=== PATIENT | female | born 1960 ===

== ENCOUNTER 2016-10-28 05:45 | Inpatient (IN) ==
[2016-10-27 12:59] LABS: Basophils % 0.6 % (0.0-0.8); Eosinophils # 0.3 10*3/uL (0.0-0.87); Eosinophils % 4.6 % (0.00-10.9); Hematocrit 39.9 VOL% (35.7-47.0); Immature Granulocytes % 0.1 %; Immature Granulocytes Absolute 0.01 #; Lymphocytes # 2.3 10*3/uL (1.4-4.0); Mean Corpuscular HGB Conc 32.6 GM/DL (32-36); Mean Corpuscular Hemoglobin 31 PG (27-34); Mean Corpuscular Volume 93.9 FL (87-102); Mean Platelet Volume 10.7 FL (9.6-12.0); Monocytes # 0.6 10*3/uL (0.11-0.8); Monocytes % 9.2 % (1.7-12.7); Neutrophils # 3.7 10*3/uL (1.4-7.4); Neutrophils % 52.5 % (38.7-73.9); Platelet Count 200 T/CUMM (130-400); Red Blood Count 4.25 MC/CUMM (3.8-5.5)
--- NOTE | 2016-10-27 13:04 | EKG Report ---
Stationary ECG Study [facility] Test Date: 10/27/2016 1:02:18 PM Pat Name: PHYLICIA CHAMBERS Department: Room: Gender: F [employer] Teacher: Mel ford : 1960 Requested by: Vineet Ford Order Number: [id number] Reading MD: CAROLE GIBSON Intervals [place] Rate: 64 P: 71 SC: 131 QRS: 72 QRSD: 93 T: 41 QT: 426 QTc: 435 Interpretive Statements SINUS RHYTHM At 64 bpm WNL Electronically Signed On 10-27-16 13:26:10 CDT by CAROLE GIBSON [email or web address]
[2016-10-27 13:05] LABS: PT Patient Result 10.9 SECS; Partial Thromboplastin Time 28.5 SECS (0-40)
[2016-10-27 13:32] LABS: Albumin 3.7 G/DL (3.4-5.0); Bilirubin,Total 0.9 MG/DL (0.2-1.0); Calcium 8.8 MG/DL (8.5-10.1); Osmolality,Calculated 288.8 MOS/KG (273-304); Potassium 4.2 MMOL/L (3.5-5.1); Total Protein 7.2 G/DL (6.4-8.3)
--- NOTE | 2016-10-27 14:25 | XRay Report ---
XR chest 2V Indication: Preop respiratory evaluation. Chest 2 views: Comparison 01/21/2015. Heart size and mediastinal contour remain normal. Area of parenchymal scarring lateral right upper lobe is stable. No new infiltrates are seen. Pleural spaces remain clear. Impression: No acute cardiopulmonary disease. PROCEDURE INTERPRETED AT [facility] DEPARTMENT OF RADIOLOGY Final Report Signed by: Sushant Lopez M.D.
[2016-10-28] MEDS ORDERED: ceFAZolin 2,000 MG in PREMIX 1 EACH IV ONE (06:00)
[2016-10-28] MEDS ORDERED: BUPIVACAINE MPF 0.25% /EPI 30 ML VIAL ONE (06:28)
[2016-10-28] MEDS ORDERED: ISOSULFAN BLUE 5 ML VIAL SUBCUT ONE (06:28)
[2016-10-28] MEDS ORDERED: LACTATED RINGERS 1,000 ML IV SCH (06:30)
[2016-10-28] MEDS ORDERED: ALBUTEROL 2.5 MG/3 ML NEB RESP TX ONE (06:31)
[2016-10-28] MEDS ORDERED: FAMOTIDINE 20 MG TABLET PO ONE (06:31)
[2016-10-28] MEDS ORDERED: DIAZEPAM 5 MG TABLET PO ONE (06:31)
[2016-10-28] MEDS ORDERED: DIAZEPAM 5 MG TABLET ONE (06:36)
[2016-10-28] MEDS ORDERED: FAMOTIDINE 20 MG TABLET ONE (06:36)
--- NOTE | 2016-10-28 07:08 | History and Physical Update ---
History and Physical Update - History and Physical H&P was reviewed, the patient examined and there: are no changes in the patients condition since last H&P was completed.
[2016-10-28] MEDS ORDERED: GLYCOPYRROLATE 0.4 MG/2 ML VIAL ONE (08:25)
[2016-10-28] MEDS ORDERED: DEXAMETHASONE 10 MG/1 ML VIAL ONE (08:25)
[2016-10-28] MEDS ORDERED: LIDOCAINE 2% 5 ML VIAL ONE (08:25)
[2016-10-28] MEDS ORDERED: PHENYLEPHRINE 1 MG/10 ML SYRINGE IV ONE (08:25)
[2016-10-28] MEDS ORDERED: NEOSTIGMINE 10 MG/10 ML VIAL ONE (08:25)
[2016-10-28] MEDS ORDERED: ROCURONIUM 100 MG/10 ML VIAL IV ONE (08:25)
[2016-10-28] MEDS ORDERED: PROPOFOL 200 MG/20 ML VIAL IV ONE (08:25)
[2016-10-28] MEDS ORDERED: KETOROLAC 30 MG/1 ML VIAL ONE (08:25)
[2016-10-28] MEDS ORDERED: ONDANSETRON 4 MG/2 ML VIAL ONE ×2 (08:25→12:15)
[2016-10-28] MEDS ORDERED: HYDROmorphone 2 MG/1 ML VIAL IV PRN (11:26)
[2016-10-28] MEDS ORDERED: ONDANSETRON 4 MG/2 ML VIAL IV PRN ×2 (11:26→12:18)
[2016-10-28] MEDS ORDERED: ACETAMINOPHEN 325 MG TABLET PO PRN (11:26)
[2016-10-28] MEDS ORDERED: TISSUE ADHESIVE 1 EACH APPLICATOR TOP ONE (11:26)
[2016-10-28] MEDS ORDERED: ALBUTEROL 2.5 MG/3 ML NEB RESP TX PRN (11:36)
--- NOTE | 2016-10-28 11:52 | Operative Note ---
Date of procedure: 10/28/16 Pre-op diagnosis: Cancer right breast Post-op diagnosis: other (Cancer right breast with positive axillary lymph node) Procedure: Operative note: Preoperative diagnosis: Cancer right breast upper outer quadrant Postop diagnosis: 1. Cancer right upper quadrant of the right breast 2. Positive axillary lymph node Procedure: 1. Wire localization with lumpectomy of the 10 o'clock position upper outer quadrant right breast with margins 2. Right sentinel node axillary dissection 3. Right completion axillary dissection. Surgeon Dr. Echols Corn Husker Machine Operator Zeenat Dugan, SURVEILLANCE MANAGER ACNP Anesthesia general with local Brief history: 56-year-old female comes in with a fairly small cancer right breast upper outer quadrant only about a centimeter in size. Was positive for cancer and we elected to bring her in for a lumpectomy at this time with sentinel node. She came in had a wire localization and came to surgery at this time for surgery. She had a sentinel node mapping the day before. Procedure: With patient in the supine position prepped and draped in a sterile fashion timeout and antibiotics completed we brought up the probe and identified the area of the hot lymph node. Because this wire look is close to the axilla I felt is important to go ahead and tried to the axillary part first. At that point we made an incision in the axilla over the site of the hottest lymph node and begin dissected down to the skin subcutaneous tissue. The large lady with a good bit of fatty tissue in the axilla at this time. It was a deep dissection but we carefully dissected down in that area to we can identify the area of the hot lymph node. I was able identify some blue dye in it and then we were able to go ahead and dissected this lymph node completely out in the lower part of the axilla. It was fairly large and firm at this time and we sent it for frozen section. The lymph node would come back as positive for cancer. At this point will moved over to do the lumpectomy site. We were doing this while we were waiting for the final report on the lymph node. At that point where we could see it with ultrasound we basically made an incision in the upper outer quadrant of the right breast and dissected down through the subtenons tissue down to the breast tissue I tried to identify the direction of the wire. The wire was identified and then we began the lips and area around this wire superiorly and inferiorly going all with out to the base of the chest wall to remove the entire lump of tissue. Once it was completely removed with the wire in place we could see the end of the hematoma site at this point. We then marked this with margin marker and clips and sent it to the pathologist and the radiologist. We will get a report back at this point that it may be a little close to the portion near the hematoma. Also the pathologist thought the anterior superior border might be a little close also. We will go back in wound and excised this medial margin to remove the remnant of that hematoma. We then went back and remove additional tissue in the anterior superior portion of this specimen to ensure that margin was clear. Once that was completed we just use light cauterization of bleeding just put a wet sponge in there. We knew at this time that the sentinel node was positive so we extended the incision in the axilla and begin to do an axillary dissection identifying the across major muscle and dissecting up towards where the vein was. A lot of fatty tissue in this area and we dissected that axillary content down from the surface part preserving the nerves and dissecting and preserving the vessels to the muscles. We dissected this fatty tissue out completely the axilla marking the upper part where I could feel firm node in that region. Once that axillary content was completely out we washed irrigated this area with sterile water using light cauterization clips. We have been using clips as we went to control any vessels or bleeding in the axilla at this time.. Once that was completed and dry at this point then we made a separate stab wound placed a #7 Rakesh-Hightower drain into the axilla and then put Tisseel her fibrin glue into the pocket and closed the subtenons tissue running 3-0 Vicryl close the skin running 4-0 Monocryl. We next went back to the lumpectomy site were marked some hemoclips along the edges of the pocket and then closed the deep subcutaneous tissue with a 3-0 Vicryl close the subcutaneous tissue with with 3-0 Vicryl. We then closed the skin with a running 4-0 Monocryl and Dermabond was applied here. Patient was then taken recovery room. Estimated blood loss 20 cc Sponge count correct 2 Drains one #7 Rakesh-Hightower Complications none Condition stable satisfactory Anesthesia: GETA, local (0.25% Marcaine with epinephrine mixed [id number] 1% Xylocaine plain) Surgeon / Physician: Vineet Echols Corn Husker Machine Operator: Zeenat Dugan Estimated blood loss: other (20 cc) Specimens: other (Lumpectomy site right breast, right sentinel lymph node, right completion axillary dissection) Condition: stable Disposition: floor Results - Labs CBC & BMP: 10/27/16 12:48 10/27/16 12:48 Discharge Plan - Discharge Medications No Action Albuterol Neb [Proventil Neb] 2.5 mg RESP TX BEDTIME PRN PRN Reason: Shortness Of Breath/Wheezing Omeprazole 40 mg PO BID Ibuprofen 400 mg PO DIRECTED - Follow Up or Referral - Forms/Instructions
[2016-10-28] MEDS: KETOROLAC 15 MG/1 ML VIAL IV SCH ×3 (12:00→23:42)
--- NOTE | 2016-10-28 12:02 | Anesthesia Post-Op ---
Anesthesia Post OP - Post Ansesthetic Evaluation Patient seen in post op: Yes Resp: within normal limits CV: within normal limits Mental: within normal limits Temp: within normal limits [id number]: within normal limits Nausea and Vomiting: within normal limits Pain: within normal limits
[2016-10-28] MEDS ORDERED: fentaNYL 100 MCG/2 ML VIAL ONE (12:06)
[2016-10-28] MEDS ORDERED: ePHEDrine 50 MG/ML AMP ONE (12:06)
[2016-10-28] MEDS ORDERED: MIDAZOLAM 2 MG/2 ML VIAL ONE (12:06)
[2016-10-28] MEDS ORDERED: SEVOFLURANE 1 UNIT/15 MINUTE INH ONE (12:06)
[2016-10-28] MEDS ORDERED: LACTATED RINGERS 2,000 ML IV ONE (12:07)
[2016-10-28] MEDS ORDERED: ACETAMINOPHEN 1,000 MG/100 ML VIAL IV ONE (12:07)
[2016-10-28] MEDS ORDERED: HYDROmorphone 2 MG/1 ML VIAL ONE (12:15)
[2016-10-28] MEDS: HYDROmorphone 2 MG/1 ML VIAL IV PRN ×3 (12:17→12:36)
[2016-10-28] MEDS: DEXTROSE 5% NACL 0.45% 1,000 ML IV SCH (16:30)
--- NOTE | 2016-10-28 16:52 | Ultrasound Report ---
RIGHT BREAST ULTRASOUND GUIDED WIRE LOCALIZATION DATE: October 28, 2016 HISTORY: 56 year-old female returning for ultrasound-guided wire localization for the biopsy-proven grade 1 infiltrating ductal carcinoma in the right upper outer quadrant at the 10:00 position measuring 1.1 x 1.0 cm. PROCEDURE: The ultrasound guided wire localization procedure was discussed with the patient and written informed consent was obtained. The targeted 10:00 mass was redemonstrated with ultrasound. The skin of the right breast and the ultrasound probe were prepared in the usual sterile fashion. 1% lidocaine was used for local anesthesia. A 7 cm Kopans needle was placed through the targeted mass and accurate positioning confirmed with real-time ultrasound. A 20 cm long hookwire was placed through the needle and the needle was removed leaving 6 cm of wire inside the breast. The patient did well and no immediate complications occurred. The hookwire was secured to the patient's chest with an overlying gauze bandage. The post localization mammographic XCCL and MLO views demonstrate that the distal thickened portion of the hookwire passes through the mass and is adjacent to the clip from prior biopsy. Posterior to the hookwire is a 3.0 x 1.6 cm hematoma. The localization was discussed with Dr. Leonardo Echols and the labeled mammographic images were sent with the patient to same day surgery. The specimen radiograph demonstrates that the targeted mass, the adjacent clip and the distal portion of the hookwire are included within the soft tissue specimen. The interpretation was discussed with Dr. Echols. IMPRESSION: Status post successful ultrasound-guided wire localization of the known grade 1 infiltrating ductal carcinoma in the right upper outer quadrant at the 10:00 position. PROCEDURE INTERPRETED AT [facility] DEPARTMENT OF RADIOLOGY Final Report Signed by: Dr. Amberly Morris
[2016-10-28] MEDS: ceFAZolin 2,000 MG in SODIUM CHLORIDE 0.9% 100 ML IV SCH (17:57)
[2016-10-28 18:28] LABS: Hematocrit 38.9 VOL% (35.7-47.0)
[2016-10-29] MEDS: DEXTROSE 5% NACL 0.45% 1,000 ML IV SCH (01:08)
[2016-10-29] MEDS: ceFAZolin 2,000 MG in SODIUM CHLORIDE 0.9% 100 ML IV SCH ×3 (01:09→17:38)
[2016-10-29 04:39] LABS: Basophils % 0.1 % (0.0-0.8); Eosinophils % 0.1 % (0.00-10.9); Hematocrit 35.2 VOL% (35.7-47.0); Hemoglobin 11.5 GM/DL (12.0-16.0); Immature Granulocytes % 0.4 %; Immature Granulocytes Absolute 0.03 #; Lymphocytes # 1.3 10*3/uL (1.4-4.0); Lymphocytes % 14.7 % (21.3-54.2); Mean Corpuscular HGB Conc 32.7 GM/DL (32-36); Mean Corpuscular Hemoglobin 31 PG (27-34); Mean Corpuscular Volume 94.6 FL (87-102); Mean Platelet Volume 11.2 FL (9.6-12.0); Monocytes # 0.7 10*3/uL (0.11-0.8); Monocytes % 8.6 % (1.7-12.7); Neutrophils # 6.5 10*3/uL (1.4-7.4); Neutrophils % 76.1 % (38.7-73.9); Platelet Count 178 T/CUMM (130-400); Red Blood Count 3.72 MC/CUMM (3.8-5.5); Red Cell Distribution Width 13.1 % (9.3-17.3); White Blood Count 8.5 T/CUMM (4-12)
[2016-10-29 05:07] LABS: Calcium 7.7 MG/DL (8.5-10.1); Potassium 4.5 MMOL/L (3.5-5.1)
[2016-10-29] MEDS: KETOROLAC 15 MG/1 ML VIAL IV SCH ×3 (05:42→17:35)
--- NOTE | 2016-10-29 07:01 | Oncology Consult Note ---
History of Present Illness Chief complaint: Breast cancer History of present illness: Ms. Holguin is a 56 year old female who has just undergone lumpectomy and sentinel node biopsy of an upper outer quadrant right breast infiltrating ductal adenocarcinoma that was ER 4+, NC 4+ and HER-2/letty negative when it was initially biopsied by Dr. Morris. There was a small area on the needle biopsy , 2 mm, of invasive disease. She has now undergone lumpectomy and sentinel node biopsy. These were performed yesterday and the final results are pending. However, I have discussed the patient's case with Dr. Echols and the patient has a positive sentinel node which changes the stage of her cancer. I had initially planned to treat her with hormone therapy alone but if she has a positive axillary node, or possibly more than one positive axillary node, we will be discussing chemotherapy as well as normal therapy and radiation. I would probably plan to use dose dense Adriamycin and Cytoxan followed by Taxol as well as using hormone therapy. She is postmenopausal. Past medical history: She has no known allergies. Her past medical history is positive for GERD, chronic bronchitis and hepatic steatosis. Prior operations include a cholecystectomy in 2005 and cataract surgery in 2014. Family history is positive for breast cancer in an aunt and her sister. Her sister also has a history of colon cancer. Her mother has a history of renal cancer. Social history: She is a former smoker and she is a former user of alcohol but does not use it anymore. ROS Gen.: Eyes: No history of chronic disease, infections or visual loss. ENT: No history of chronic infections, epistaxis, chronic sore throat Lungs: Positive for COPD no history of asthma,hemoptysis, chronic pleurisy or long-term or chronic infections Cardiovascular: No history of angina, coronary artery disease, congestive heart failure, cardiovascular surgery or DVT/VTE GI: Positive for hepatic steatosis. She also tells me that her appetite is decreased. No history of upper or lower GI bleeding, melena, dysphagia, odynophagia, liver disease, gallbladder disease or pancreatic disease. : No history of kidney stones, chronic kidney infections or hematuria. Musculoskeletal: No history of chronic bone or joint pain or focal muscle atrophy or bone or joint deformity. Neurologic: No history of seizures, convulsions or paralysis. Psychiatric: No history of chronic psychiatric illness or psychiatric medications. Lymphatic: No history of significant or long-term lymphadenopathy Hematologic: No history of anemia, bleeding disorders or blood dyscrasias or long-term elevation or depression white cell count or petechiae. Skin: No history of chronic skin infections or rashes or significant skin lesions. Physical examination: General: The patient is well-developed, well-nourished, obese but in no acute distress. Eyes: Lids and conjunctive are normal. She has had bilateral cataract surgery. ENT: Her oral mucosa and pharynx are normal. Her hearing is normal. Neck: There are no neck masses. Her thyroid is normal. Lungs: Breath sounds are normal and her chest moves symmetrically with respiration. Cardiovascular: Her heart rhythm is regular without murmur, gallop or rub and there is no jugular venous distention, clubbing or cyanosis. Abdomen: No abdominal masses or organomegaly, distention, tenderness or ascites. Musculoskeletal: There is no focal muscle atrophy or bone or joint deformity. Neurologic: Cranial nerves II through XII are intact. No focal neurologic deficits. Psychiatric: She is oriented to time, place, person and situation. I will await the final results of the lumpectomy and node dissection but a properly discussed the possibility of adjuvant chemotherapy with the patient. She already has an appointment to see me in follow-up. She is probably going to need a Mediport catheter placement in order to facilitate adjuvant chemotherapy. Thank you for consulting me. Home Medications Medication Instructions Recorded Confirmed Type Albuterol Neb [Proventil Neb] 2.5 mg RESP TX BEDTIME PRN 01/23/15 10/28/16 History Ibuprofen 400 mg PO DIRECTED 10/27/16 10/28/16 History Omeprazole 40 mg PO BID 10/27/16 10/28/16 History Allergies Allergy/AdvReac Type Severity Reaction Status Date / Time No Known Allergies Allergy Verified 10/28/16 06:14 Medical,Surgical,& Family Hx - Medical History Neurology: No history of: Seizures HEENT: History of: Eye Problem (glasses/cataracts), Dental Problems (partial upper), HEENT Problems (sinus drainage) Respiratory: History of: Asthma, Obstructive Sleep Apnea (c pap instructed pt to bring) Gastrointestinal: History of: GERD (barretts esophagus fatty liver), GI Problems (increased heartburn, dysphagia) Hematology: No history of: Blood Transfusion Reaction Reproductive: History of: Breast Cancer (right breast) Other: No history of: Anesthesia Reactions - Surgical History HEENT Surgeries: Surgical HX of: Eye Surgery (for lt cataract 01/23/15) Abdominal Surgeries: Surgical HX of: Abdominal Surgery, Cholecystectomy Reproductive Surgeries: Surgical HX of;: Breast Surgery (right breast), Gynecologic Surgery, Tubal Ligation Orthopedic Surgeries: Surgical HX of;: Orthopedic Surgery (knee scope x 2) - Family History Family History: Reports;: Family Cancer (mother), Family Diabetes (daughter, mother) Denies;: Family Anesthesia Reaction - Social History Smoking Status: Former smoker Frequency of Alcohol Use: None Type of Drug Use: None Exam - Constitutional Vitals: Period Temp Pulse Resp BP Sys/Morley Pulse Ox Last 24 Hr 97.3 F-98.2 F 72-94 16-22 96-178/43-86 93-99 Results - Labs CBC & BMP: 10/29/16 03:55 10/29/16 03:55
--- NOTE | 2016-10-29 07:59 | General Surgery Progress Note ---
Assessment and Plan - Time spent with patient Time spent with patient: Less than 30 minutes (1) Carcinoma of right breast metastatic to axillary lymph node Status: Acute Assessment and plan: 10/29/16 Stable post op lumpectomy of the right breast with right sentinel node biopsy and formal axillary dissection. We'll try to get her mobile today and begin teaching her how to manage her wound/drain. Awaiting Dr Leach's visit today. Likely discharge home tomorrow. Current Visit: Yes Subjective Patient reports: Present: other (Mild to moderate incisional pain post op; denies n/v. Voiding ok.) Exam - Constitutional Vitals: Period Temp Pulse Resp BP Sys/Morley Pulse Ox Last 24 Hr 97.0 F-98.2 F 72-94 16-22 96-178/43-86 93-99 General appearance: no acute distress, over weight - Respiratory Respiratory exam: Present: clear to auscultation bilaterally - Cardiovascular Cardiovascular exam: Present: RRR - Breasts Breasts: other (Right breast with closed incisions, no unusual induration or fluctuance. Minimal surgical ecchymosis is present. MERLE in place; scant serous drainage. ) - GI/Abdominal GI/Abdominal exam: Present: hypoactive bowel sounds, soft - Extremities Exam Extremities exam: Present: other (RUE without edema or redness. Good right shoulder range of motion although she is cautious and the shoulder is a little stiff with passive range of motion. I believe this is secondary to surgical positioning. ) - Neurological Exam Neurological exam: Present: alert, oriented X3 Results - Labs CBC & BMP: 10/29/16 03:55 10/29/16 03:55 Lab Results: I have reviewed the past 24 hour labs (Post op H&H is stable.)
[2016-10-29] MEDS: ENOXAPARIN 40 MG/0.4 ML SYRINGE SUBCUT SCH (09:11)
[2016-10-29] MEDS: PANTOPRAZOLE 40 MG TABLET PO SCH (09:12)
[2016-10-29] MEDS ORDERED: MAGNESIUM CITRATE 300 ML BOTTLE PO ONE (14:17)
[2016-10-30] MEDS: KETOROLAC 15 MG/1 ML VIAL IV SCH ×2 (00:26→05:45)
--- NOTE | 2016-10-30 06:52 | Oncology Progress Note ---
Oncology Subjective PN Interval history: Final pathology report is pending. Of course if there is tumor in her lymph node, we will need to recheck HER-2/letty studies only. I have discussed this with Dr. Kirit Weiss and I made him aware that I would like this done. Exam - Constitutional Vitals: Period Temp Pulse Resp BP Sys/Morley Pulse Ox Last 24 Hr 98.0 F-99.8 F 68-78 16-22 89-114/50-85 91-98 Results - Labs CBC & BMP: 10/29/16 03:55 10/29/16 03:55 Specialty Discharge - Follow Up or Referrals Follow up with: Vineet Echols MD [Physician] -
[2016-10-30 07:42] VITALS: BP 96/52
[2016-10-30] MEDS: ENOXAPARIN 40 MG/0.4 ML SYRINGE SUBCUT SCH (07:57)
[2016-10-30] MEDS: PANTOPRAZOLE 40 MG TABLET PO SCH (08:07)
[2016-10-30] MEDS: DEXTROSE 5% NACL 0.45% 1,000 ML IV SCH (08:15)
--- NOTE | 2016-10-30 08:20 | Discharge Summary ---
Hospital Course - Hospital Course Hospital Course: Brief summary-This 56 year old female patient with positive family history of breast cancer was found to have infiltrating ductal carcinoma on core needle biopsy after an abnormal routine screening mammogram. Her initial report was of ER/OH positive, HER2 negative tumor that was amenable to lumpectomy. She preferred breast conservation, and this was offered to her, given the tumor size and location in the UOQ. She was prepped for sentinel node biopsy and taken to surgery on 10/28/16, where a lumpectomy with sentinel node biopsy was performed. Unfortunately the sentinel node was positive for metastatic disease, so the procedure was advanced to formal axillary dissection. Postoperatively, she has done fairly well except for some moderate pain and some abdominal discomfort, which we have determined to be constipation. She has now received a laxative, from which she has had good results and is comfortable with resolution of her abdominal discomfort. Today, she is tolerating a regular diet, has been taught to manage her wound care and MERLE drain, which has moderate output. Oncology has been consulted and Dr Leach is awaiting repeat ER/OH/[id number] Studies on the lymph nodes. With her doing well and her pain managed on po Carey, we will plan to discharge home for follow up one week from Wednesday unless she has problems or questions. - Time spent with patient Time with patient DS: Greater than 30 minutes Diagnosis - Discharge Diagnosis (1) Carcinoma of right breast metastatic to axillary lymph node Status: Acute Specialty Discharge - Follow Up or Referrals Follow up with: Vineet Echols MD [Physician] - (One week from Wednesday for drain removal.) Discharge Plan - Discharge Data Disposition: Home Health Service Condition at Discharge: Stable Discharge Diet: advance to your usual diet, other (Increase fiber and drink plenty of water. Get MIRALAX (Over the Counter) and mix one capful in one glass of juice or water and drink daily.) Activity: increase activity as tolerated, other (Post mastectomy exercises as we discussed) Hygiene: may shower Weight Bearing at Discharge: full weight bearing Driving: not for (one week) Contact your physician if you experience:: fever over 101, Redness or swelling, Nausea/Vomiting, Shortness of breath, Bleeding, pain uncontrolled by pain medications Wound / Dressing Care Instructions: Shower/wash the incisions and drain site daily using 10mL of Hibiclens; rinse and pat or air dry. Apply a light gauze dressing or Border gauze over the drain site. Place dry 4x4s or other gauze dressings over the incisions and allow your surgical bra or a sports bra to hold these in place. - Discharge Medications New HYDROcodone/ACETAMIN 7.5-325 [Carey 7.5-325] 1 tablet PO Q6H PRN #20 tablet PRN Reason: Pain Moderate To Severe (4-10) Continue Albuterol Neb [Proventil Neb] 2.5 mg RESP TX BEDTIME PRN PRN Reason: Shortness Of Breath/Wheezing Omeprazole 40 mg PO BID Ibuprofen 400 mg PO DIRECTED - Follow Up or Referral Follow Up: Vineet Echols MD [Physician] - - Forms/Instructions Instructions: Excisional Breast Biopsy (DC), Cristobal Ocampo-Loco Drain Discharge Instructions Exam - Constitutional Vitals: Period Temp Pulse Resp BP Sys/Morley Pulse Ox Last 24 Hr 98.0 F-99.8 F 68-78 16-22 89-114/50-85 91-98 General appearance: no acute distress, over weight - Head Head exam: Present: normal inspection - Respiratory Respiratory exam: Present: clear to auscultation bilaterally - Cardiovascular Cardiovascular exam: Present: regular rate and rhythm - GI/Abdominal GI/Abdominal exam: Present: hypoactive bowel sounds, soft. Absent: distended, tenderness - Extremities Exam Extremities exam: Present: normal inspection - Neurological Exam Neurological exam: Present: alert, oriented X3, reflexes normal - Psychiatric Psychiatric exam: Present: normal affect, normal mood - Skin Skin exam: Present: other (Right breast incisions are clean and dry; there is no unusual ecchymosis or swelling. MERLE site is clean; moderate serous/sanguinous drainage in bulb, about 20-30cc's. ) DS: Provider Date of admission: 10/28/16 05:45 Primary care physician: Maykel Rogers MD Attending physician on admission: Vineet Echols MD Consults: 10/28/16 11:26 Consult to Physician [CONS] Routine Comment: Consulting Provider: Sushant Leach Consulting Provider Notified: Yes When should Consulting Provider be notified: Now Person Notified: francesco dennis Date Notified: 10/28/16 Time Notified: 13:37 Consult Notification Comment: Patient with right breast cancer status post lumpectomy and axillary dissection for positive lymph node 10/28/16 11:33 Consult to Case Mgmt/Social Srvs [CONS] Routine Reason for Case Mgmt/Social Srvs: Discharge Planning Home Health Consult Comment: Wound and Drain management Discharging clinician: Zeenat Dugan CNP, R
== END 2016-10-30 10:30 | disposition home health service (06) | DRG 580 ==
LOC: N.OR 05:45 → N.SDSINP 05:45 → N.3E 08:42 → EDSTATUS 09:00 → N.3E 11:26
PROVIDERS: ADMIT Specialist; ATTEND Specialist

== ENCOUNTER 2022-01-28 05:36 | Inpatient (IN) ==
[2022-01-28] MEDS ORDERED: VANCOMYCIN INJ 1,000 MG in SODIUM CHLORIDE 0.9% 250 ML IV ONE (06:00)
[2022-01-28] MEDS ORDERED: ROCURONIUM 50 MG/5 ML VIAL IV ONE (06:00)
[2022-01-28] MEDS ORDERED: LIDOCAINE 2% 5 ML VIAL ONE (06:00)
[2022-01-28] MEDS ORDERED: propofoL 200 MG/20 ML VIAL IV ONE (06:00)
[2022-01-28] MEDS ORDERED: MIDAZOLAM 2 MG/2 ML VIAL ONE (06:02)
[2022-01-28] MEDS ORDERED: fentaNYL 100 MCG/2 ML VIAL ONE (06:02)
[2022-01-28] MEDS ORDERED: ROPIVACAINE 0.5% 30 ML VIAL ONE (06:06)
[2022-01-28] MEDS ORDERED: LIDOCAINE 1% 5 ML VIAL ONE (06:08)
[2022-01-28] MEDS ORDERED: BUPIVACAINE SPINAL 0.75% 2 ML AMP SPINAL ONE (06:08)
[2022-01-28] MEDS ORDERED: GABAPENTIN 400 MG CAPSULE ONE (06:22)
[2022-01-28] MEDS ORDERED: PANTOPRAZOLE 40 MG TABLET PO ONE (06:22)
[2022-01-28] MEDS ORDERED: ACETAMINOPHEN 500 MG TABLET ONE (06:22)
[2022-01-28] MEDS ORDERED: DEXMEDETOMIDINE 200 MCG/2 ML VIAL ONE (06:29)
[2022-01-28] MEDS ORDERED: KETAMINE 500 MG/10 ML VIAL ONE (06:29)
[2022-01-28] MEDS ORDERED: ONDANSETRON 4 MG/2 ML VIAL ONE (06:31)
[2022-01-28] MEDS ORDERED: DEXAMETHASONE 4 MG/1 ML VIAL ONE (06:34)
[2022-01-28] MEDS ORDERED: BUPIVACAINE 0.5% 50 ML VIAL ONE (06:35)
[2022-01-28] MEDS ORDERED: LACTULOSE 20 GM/30 ML UDCUP PO PRN (07:04)
[2022-01-28] MEDS ORDERED: MORPHINE 2 MG/1 ML SYRINGE IV PRN ×2 (07:04→07:14)
[2022-01-28] MEDS ORDERED: BISACODYL 10 MG SUPP RECTAL PRN (07:04)
[2022-01-28] MEDS ORDERED: TEMAZEPAM 7.5 MG CAPSULE PO PRN (07:04)
[2022-01-28] MEDS ORDERED: PROMETHAZINE 25 MG/1 ML VIAL IM PRN (07:04)
[2022-01-28] MEDS ORDERED: diphenhydrAMINE CAP 25 MG CAPSULE PO PRN (07:04)
[2022-01-28] MEDS ORDERED: ONDANSETRON 4 MG/2 ML VIAL IV PRN (07:04)
[2022-01-28] MEDS ORDERED: MAGNESIUM HYDROXIDE SUSP 30 ML UDCUP PO PRN (07:04)
[2022-01-28] MEDS ORDERED: DICLOFENAC 1% GEL 100 GM TUBE TOP PRN (07:07)
[2022-01-28] MEDS ORDERED: ALBUTEROL 2.5 MG/3 ML NEB RESP TX PRN (07:07)
[2022-01-28] MEDS ORDERED: ALBUTEROL/IPRATROPIUM 3 ML NEB RESP TX PRN (07:07)
[2022-01-28] MEDS ORDERED: IBUPROFEN 800 MG TABLET PO PRN (07:07)
[2022-01-28] MEDS: LACTATED RINGERS 1,000 ML IV SCH ×3 (07:16→11:15)
[2022-01-28] MEDS ORDERED: buprenorphine HCL 0.3 MG/ML VIAL ONE (07:18)
[2022-01-28] MEDS ORDERED: ePHEDrine 50 MG/ML VIAL ONE (07:52)
[2022-01-28] MEDS ORDERED: TRANEXAMIC ACID 1,000 MG/10 ML VIAL ONE (08:37)
[2022-01-28] MEDS ORDERED: LACTATED RINGERS 1,000 ML IV ONE (08:37)
[2022-01-28 09:30] LABS: Bilirubin,Urine Negative (Negative); Blood, Urine Trace mg/dL (Negative); Glucose,Urine (UA) Negative (Negative); Ketones,Urine Negative (Negative); Nitrite,Urine Negative (Negative); Protein,Urine Negative (Negative); Urine Appearance Clear (Clear); Urine Color Yellow (Yellow); Urine Specific Gravity 1.025 (1.001-1.035); Urine Urobilinogen 0.2 eU/dL (<2.0); Urine pH 5.5 (4.5-8.0)
[2022-01-28 09:31] LABS: Mucus,Urine Trace /LPF (Occasional); RBC,Urine 0-2 /HPF (0-4); Squamous Epithelial Cell,Urine Rare /HPF (0-10)
[2022-01-28] MEDS: ceFAZolin 2,000 MG/50 ML DUPLEX IV SCH ×2 (18:30→23:35)
[2022-01-28] MEDS: PANTOPRAZOLE 40 MG TABLET PO SCH (18:42)
[2022-01-28] MEDS: FONDAPARINUX 2.5 MG/0.5 ML SYRINGE SUBCUT SCH (21:05)
[2022-01-28] MEDS: DOCUSATE SODIUM 100 MG CAPSULE PO SCH (21:05)
[2022-01-29 04:54] LABS: Basophils % 0.1 % (0.0-0.8); Hematocrit 34.1 VOL% (35.7-47.0); Hemoglobin 11.1 GM/DL (12.0-16.0); Immature Granulocytes % 0.4 %; Immature Granulocytes Absolute 0.04 #; Lymphocytes # 1.2 10*3/uL (1.4-4.0); Mean Corpuscular HGB Conc 32.6 GM/DL (32-36); Mean Corpuscular Volume 100.6 FL (87-102); Mean Platelet Volume 11.4 FL (9.6-12.0); Monocytes # 0.8 10*3/uL (0.11-0.8); Monocytes % 9.2 % (1.7-12.7); Neutrophils % 77.3 % (38.7-73.9); Platelet Count 123 T/CUMM (130-400); Red Blood Count 3.39 MC/CUMM (3.8-5.5); Red Cell Distribution Width 13.1 % (9.3-17.3); White Blood Count 8.9 T/CUMM (4-12)
[2022-01-29 05:07] LABS: Calcium 8.6 MG/DL (8.5-10.1); Osmolality,Calculated 279.5 MOS/KG (273-304); Potassium 4.7 MMOL/L (3.5-5.1)
[2022-01-29] MEDS ORDERED: ACETAMINOPHEN 325 MG TABLET PO PRN (07:05)
[2022-01-29] MEDS: PANTOPRAZOLE 40 MG TABLET PO SCH (08:31)
[2022-01-29] MEDS: DOCUSATE SODIUM 100 MG CAPSULE PO SCH ×2 (08:31→20:27)
[2022-01-29] MEDS: LACTATED RINGERS 1,000 ML IV SCH (08:39)
[2022-01-29] MEDS: FONDAPARINUX 2.5 MG/0.5 ML SYRINGE SUBCUT SCH (20:27)
[2022-01-30] MEDS: PANTOPRAZOLE 40 MG TABLET PO SCH (08:09)
[2022-01-30] MEDS: DOCUSATE SODIUM 100 MG CAPSULE PO SCH (08:09)
[2022-01-30 12:42] VITALS: BP 116/47
== END 2022-01-30 13:12 | disposition home health service (06) | DRG 470 ==
LOC: N.SDSINP 05:36 → N.3E 15:44
PROVIDERS: ADMIT Orthopaedic Surgery; ATTEND Orthopaedic Surgery